=== PATIENT | male | born 1985 | race Caucasian/White ===

== ENCOUNTER 2024-10-03 03:14 | Emergency (ER) | payer OTHER ==
[~2024-10-03] VITALS: Ht 182.9 cm; Wt 95.5 kg
[2024-10-03 03:19] VITALS: TEMP 97.3
[2024-10-03] MEDS ORDERED: LISD40CA PO (03:25)
[2024-10-03 03:50] LABS: BASOPHILS % (AUTO) 0.6 % (0.0-2.0); EOSINOPHILS % (AUTO) 1.9 % (1.0-6.0); HEMATOCRIT 44.1 % (41-53); HEMOGLOBIN 14.8 g/dL (13.5-17.5); LYMPHOCYTES # (AUTO) 2.9 K/uL (1.0-4.8); LYMPHOCYTES % (AUTO) 46.7 % (22.0-44.0); MEAN CORPUSCULAR HEMOGLOBIN 30.6 pg (26.0-34.0); MEAN CORPUSCULAR HGB CONC 33.5 G/dL (31.0-37.0); MEAN CORPUSCULAR VOLUME 91 fL (80-100); MONOCYTES # (AUTO) 0.6 K/uL (0.1-1.0); MONOCYTES % (AUTO) 9.7 % (2.0-9.0); NEUTROPHILS # (AUTO) 2.6 K/uL (1.8-7.7); NEUTROPHILS % (AUTO) 41.1 % (40.0-70.0); PLATELET COUNT (AUTO) 197 K/uL (150-450); RED BLOOD CELL COUNT(AUTO) 4.83 MIL/uL (4.50-5.90); RED CELL DISTRIBUTION WIDTH 14.2 % (11.5-14.5); WHITE BLOOD COUNT (AUTO) 6.2 K/uL (4.5-11.0)
[2024-10-03 03:56] LABS: ANION GAP 6 mmol/L (8-16); CALCIUM, TOTAL 8.3 mg/dL (8.8-10.5); CARBON DIOXIDE 28 mmol/L (22-29); CHLORIDE 102 mmol/L (98-107); GLOMERULAR FILTR. RATE CALC > 60 mL/min (>60); GLUCOSE,RANDOM 92 mg/dL (70-110); POTASSIUM 3.6 mmol/L (3.5-5.1); SODIUM SERUM 136 mmol/L (136-145); UREA NITROGEN, BLOOD 23 mg/dL (7-18)
[2024-10-03 03:57] LABS: APPEARANCE,URINE HAZY (CLEAR); BILIRUBIN,URINE NEGATIVE (NEGATIVE); COLOR,URINE LIGHT BROWN (YELLOW); GLUCOSE, URINE (UA) NEGATIVE (NEGATIVE); KETONES,URINE NEGATIVE (NEGATIVE); LEUKOCYTE ESTERASE ,URINE NEGATIVE (NEGATIVE); NITRATE,URINE NEGATIVE (NEGATIVE); OCCULT BLOOD,URINE LARGE (NEGATIVE); PROTEIN,URINE TRACE mg/dL (NEGATIVE); SPECIFIC GRAVITIY, URINE 1.009 (1.003-1.030); UROBILINOGEN,URINE <=1.0 mg/dL (<=1.0)
[2024-10-03 04:00] LABS: RBC,URINE 51-100 /HPF (0-2)
[2024-10-03 04:01] LABS: BACTERIA,URINE None Seen /HPF (None Seen); SQUAMOUS EPITHELIAL CELL,UR Few /LPF (None Seen); WBC,URINE None Seen /HPF (0-5)
[2024-10-03] MEDS: TAMSULOSIN HCL 0.4 MG CAPSULE PO ONE (05:29)
[2024-10-03] MEDS: ONDANSETRON HCL 4 MG/2 ML VIAL IVP ONE (05:29)
[2024-10-03] MEDS: HYDROmorphone HCL 2 MG/ML SYRINGE IVP ONE (05:29)
[2024-10-03] MEDS: SODIUM CHLORIDE 0.9% 2,000 ML IV ONE (05:29)
[2024-10-03] MEDS: KETOROLAC TROMETHAMINE 30 MG/ML VIAL IVP ONE (05:29)
[2024-10-03] MEDS ORDERED: HYDR-4062 PO (06:06)
[2024-10-03] MEDS ORDERED: TAMS0.4C94 PO (06:06)
[2024-10-03] MEDS ORDERED: IBUP-1554 PO (06:06)
[2024-10-03 07:53] VITALS: BP 110/67; PULSE 51; RESP 18; O2SAT 98
== END 2024-10-03 09:54 | disposition home or self-care (01) ==
LOC: EMS 03:19
DX: R31.0 Gross hematuria (principal); N20.0 Calculus of kidney; Z98.890 Other specified postprocedural states; Z79.899 Other long term (current) drug therapy
CPT/HCPCS: 99285; 74176; 96374; 96375; 96361; 80048; 81001; 85025; 36415; J1885; J1171; J2405; J7030